=== PATIENT | male | born 1980 | race Caucasian/White ===

== ENCOUNTER 2017-06-23 11:13 | Emergency (ER) | payer MEDICAID, OTHER ==
[~2017-06-23] VITALS: Ht 177.8 cm; Wt 79.0 kg
[2017-06-23 11:17] VITALS: Ht 177.8 cm; Wt 79.0 kg
--- NOTE | 2017-06-23 11:47 | ERD ---
ER Documentation Chief Complaint Date/Time DATE: 06/23/17 TIME: 11:35 Chief Complaint LT FOOT INJURY , FELL FROM LADDER LAST NIGHT HPI 38-year-old male who presents emergency department for left ankle/foot pain secondary to injury/fall that happened last night around 11 PM. Patient stated he was on a ladder that is approximately 6 foot or 6 feet high, out of balance, fell, landed on his left ankle. Denies headache, head injury, blurred vision, neck pain, throat pain, difficulty swallowing, shoulder pain, chest pain, back pain, abdominal pain, nausea, vomiting, constipation, diarrhea, urinary symptoms, loss of bowel bladder control, numbness or tingling sensation, calf pain, fever, chills. No known drug allergies. No past medical history. No surgical history. Medication: Denies any prescription medications at home. 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 Smokes about a pack of cigarettes a day. Occasional drinks alcoholic beverages. Denies use of illegal drugs. ROS All systems reviewed and are negative except as per history of present illness. Medications Home Meds Active Scripts Ibuprofen* (Motrin*) 800 Mg Tab, 800 MG PO Q8 Y for PAIN AND OR ELEVATED TEMP, # 30 TAB Prov:JESUS BEVERLY F 06/23/17 Hydrocodone/Acetaminophen (Corydon 10-325 Tablet) 1 Each Tablet, 1 TAB PO Q6H Y for PAIN, #15 TAB Prov:PASILABANDEWAYNEAR F 06/23/17 Allergies Allergies: Coded Allergies: No Known Allergy (Unverified , 06/23/17) Physical Exam Vitals Vital Signs Date Time Temp Pulse Resp B/P Pulse Ox O2 Delivery O2 Flow Rate FiO2 06/23/17 11:17 98.1 98 18 168/90 100 Physical Exam Const: [] Head: Atraumatic Eyes: Normal Conjunctiva ENT: Normal External Ears, Nose and Mouth. Neck: Full range of motion..~ No meningismus. Resp: Clear to auscultation bilaterally Cardio: Regular rate and rhythm, no murmurs Abd: Soft, non tender, non distended. Normal bowel sounds Skin: No petechiae or rashes Back: No midline or flank tenderness Ext: No cyanosis. Bilateral hips are stable and unremarkable. Right lower extremity is unremarkable. Left ankle/distal aspect of the tibia and fibula are swollen with deformity and is tenderness to palpation. Left ankle/ posterior area has ecchymosis. Left foot is swollen with tenderness. Pedal pulse is within normal limits. Left knee is unremarkable. C-spine/T-spine/L- spine are in midline with good and full range of motion and is no swelling/ bulging/deformity/discoloration/point of tenderness. Bilateral upper extremities unremarkable. Saddle anesthesia. No neurovascular deficits. Neur: Awake and alert. No neurological deficits. Psych: Normal Mood and Affect Results 24 hrs Current Medications Medications (Trade) Dose Ordered Sig/Leatha Route PRN Reason Start Time Stop Time Status Last Admin Dose Admin Acetaminophen/ Hydrocodone Bitart (Corydon ()) 1 tab ONCE ONCE PO 06/23/17 12:00 06/23/17 12:01 DC 06/23/17 11:47 Procedures/MDM 38-year-old male who presents emergency department for left ankle/foot pain secondary to injury/fall that happened last night around 11 PM. Patient stated he was on a ladder that is approximately 6 foot or 6 feet high, out of balance, fell, landed on his left ankle. Denies headache, head injury, blurred vision, neck pain, throat pain, difficulty swallowing, shoulder pain, chest pain, back pain, abdominal pain, nausea, vomiting, constipation, diarrhea, urinary symptoms, loss of bowel bladder control, numbness or tingling sensation, calf pain, fever, chills. No known drug allergies. No past medical history. No surgical history. Medication: Denies any prescription medications at home. 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 Smokes about a pack of cigarettes a day. Occasional drinks alcoholic beverages. Denies use of illegal drugs. Physical exam: Bilateral hips are stable and unremarkable. Right lower extremity is unremarkable. Left ankle/distal aspect of the tibia and fibula are swollen with deformity and is tenderness to palpation. Left ankle/ posterior area has ecchymosis. Left foot is swollen with tenderness. Pedal pulse is within normal limits. Left knee is unremarkable. C-spine/T-spine/L- spine are in midline with good and full range of motion and is no swelling/ bulging/deformity/discoloration/point of tenderness. Bilateral upper extremities unremarkable. No neurovascular deficits. No neurological deficits. Disease process was explained to the patient. Patient verbalized understanding and agreed with the diagnostic exam, treatment, plan of care, follow-up care. X-ray of the left foot: Comminuted fracture of the left calcaneus with associated soft tissue swelling. X-ray of the left ankle: No acute fracture dislocation involving the ankle. Ankle mortise is congruent. Comminuted fracture of the left calcaneus with associated soft tissue swelling. X-ray of the left tibia and fibula: Normal left tibia and fibula. X-ray of the lumbar spine: No visualized traumatic injury. Treatment: Corydon 10.325 mg tablet 1. Posterior short leg splint with stirrups to the left leg. Crutch and crutch training was also provided. Reevaluation: Denies headache, dizziness, blurred vision, neck pain, shoulder pain, chest pain, back pain, abdominal pain, nausea, vomiting. C-spine/T-spine/ L-spine are in midline with good and full range of motion and is no swelling/ bulging/deformity/discoloration/point of tenderness. No saddle anesthesia. No neurovascular deficits prior to and after the application of splint. Differential diagnosis: Fracture versus displacement versus dislocation versus contusion versus sprain Final diagnosis: Calcaneal fracture. Prescription: Corydon. Motrin. Instructed on RICE. Officer Maria Victoria and officer Delores from [facility] came to see patient. The officers told me that there is a warrant for this patient from [facility] and they have them come here in the emergency department to make sure the patient does not leave. Follow-up with PCP in the next 24-48 hours. Follow-up with orthopedic doctor in the next 24-48 hours. Come back here in the emergency department for any new symptoms which includes but not limited to cardiovascular changes/deficits, respiratory changes/deficits, gastrointestinal changes/deficits, genitourinary changes/deficits, neurovascular changes/deficits, neurological changes/deficits , signs and symptoms of sepsis or severe infection. Questions and concerns were answered. Patient verbalized understanding and agreed with the plan of care. Hemodynamically stable on discharge. Departure Diagnosis: Primary Impression: Calcaneal fracture Additional Impression: Comminuted fracture Condition: Stable Additional Instructions: Follow-up with PCP in the next 24-48 hours. Follow-up with orthopedic doctor in the next 24-48 hours. Come back here in the emergency department for any new symptoms which includes but not limited to cardiovascular changes/deficits, respiratory changes/deficits, gastrointestinal changes/deficits, genitourinary changes/deficits, neurovascular changes/deficits, neurological changes/deficits , signs and symptoms of sepsis or severe infection. Questions and concerns were answered. Patient verbalized understanding and agreed with the plan of care. JESUS BEVERLY Jun 23, 2017 11:47
[2017-06-23] MEDS ORDERED: HYDROCODONE/APAP (10/325) TAB PO ONE (12:00)
--- NOTE | 2017-06-23 12:29 | RADRPT ---
PROCEDURE: XR Tibia and Fibula. CLINICAL INDICATION: Fall/injury TECHNIQUE: AP, lateral and oblique views of the left tibia and fibula were obtained. COMPARISON: None FINDINGS: There is normal mineralization and alignment. No fracture or osseous lesion is identified. The joint s are unremarkable. There are normal soft tissues without evidence of soft tissue swelling. IMPRESSION: Normal left tibia and fibula. RPTAT: QQ Physician Cesilia Date Time Electronically viewed and signed by Physician Cesilia on 06/23/2017 12:29 /
--- NOTE | 2017-06-23 12:31 | RADRPT ---
PROCEDURE: XR Left Ankle. CLINICAL INDICATION: Fall/injury TECHNIQUE: AP, oblique and lateral views of the left ankle were performed. COMPARISON: None FINDINGS: There is normal mineralization and alignment. There is a comminuted fracture of the left calcaneus with associated soft tissue swelling. No acute fracture dislocation of the left ankle. Ankle mortise is congruent. The joints are normal. IMPRESSION: No acute fracture or dislocation involving the ankle. Ankle mortise is congruent. Comminuted fracture of the left calcaneus with associated soft tissue swelling. RPTAT: QQ Physician Cesilia Date Time Electronically viewed and signed by Physician Cesilia on 06/23/2017 12:31 /
--- NOTE | 2017-06-23 12:33 | RADRPT ---
PROCEDURE: XR Foot. CLINICAL INDICATION: Fall/injury TECHNIQUE: AP, lateral and oblique views of the left foot was obtained. The images were reviewed on a PACS workstation. COMPARISON: None FINDINGS: Comminuted fracture of the left calcaneus with associated soft tissue swelling. No significant degenerative changes. Bone mineralization is normal. IMPRESSION: Comminuted fracture of the left calcaneus with associated soft tissue swelling. RPTAT: QQ Physician Cesilia Date Time Electronically viewed and signed by Physician Cesilia on 06/23/2017 12:32 /
--- NOTE | 2017-06-23 13:50 | RADRPT ---
PROCEDURE: XR Lumbar Spine 3 Views. CLINICAL INDICATION: Low back pain and trauma. TECHNIQUE: Lumbar spine study including AP, lateral and coned L5-S1 views was performed. COMPARISON: No prior studies are available for comparison. FINDINGS: Lumbar spine demonstrates a normal lordosis. No fractures or destructive bony lesions are observed. Intervertebral disk heights appear normal. The facet joints are unremarkable. Soft tissues surro unding the spine appear normal. IMPRESSION: No visualized traumatic injury. If there is high clinical suspicion for traumatic injury, further evaluation with CT should be consi dered. RPTAT: AA .Augie Carlos MD, Date Time Electronically viewed and signed by .Augie Carlos MD, on 06/23/2017 13:50 .P/
[2017-06-23] MEDS ORDERED: HYDR-902 PO (14:03)
[2017-06-23] MEDS ORDERED: IBUP800T25 PO (14:04)
== END 2017-06-23 17:38 | disposition home or self-care (01) ==
LOC: EDBD 11:13 → FTE 11:13
DX: S92.002A Unspecified fracture of left calcaneus, initial encounter for closed fracture (principal); F17.210 Nicotine dependence, cigarettes, uncomplicated; W11.XXXA Fall on and from ladder, initial encounter; Y92.9 Unspecified place or not applicable
CPT/HCPCS: 72100; 73590; 73610; 73630; Z7502; Z7610